=== PATIENT | female | born 1980 | race Caucasian/White ===

== ENCOUNTER 2017-08-28 09:30 | Inpatient (IN) | payer OTHER ==
[2017-08-28 12:43] VITALS: BMI 33.5
[2017-08-28] MEDS ORDERED: ELECTROLYTE-148 SOLN 500 ML IV ONE (13:45)
[2017-08-28] MEDS ORDERED: CITRIC ACID/SODIUM CITRATE 30 ML UNIT-DOSE CUP PO ONE (13:45)
[2017-08-28] MEDS ORDERED: ONDANSETRON 4 MG/2 ML VIAL IVPUSH PRN (13:55)
[2017-08-28] MEDS ORDERED: morphine SULFATE/Preservative Free 0.5 MG/ML (1cc Syringe) EP ONE (13:55)
[2017-08-28] MEDS ORDERED: IBUPROFEN 800 MG/8 ML IJ IVPB PRN (13:55)
[2017-08-28] MEDS ORDERED: ELECTROLYTE-148 SOLN 1,000 ML IV SCH ×2 (14:15→15:30)
[2017-08-28] MEDS ORDERED: diphenhydrAMINE HCL 25 MG CAPSULE (FP) PO PRN (15:21)
[2017-08-28] MEDS ORDERED: WITCH HAZEL 50% (TUCKS) 40 PAD/JAR PAD TP PRN (15:21)
[2017-08-28] MEDS ORDERED: BENZOCAINE 28 GM HEMORRHOIDAL OINTMENT PR PRN (15:21)
[2017-08-28] MEDS ORDERED: oxyCODONE HCL 5 MG TABLET PO PRN ×2 (15:21)
[2017-08-28] MEDS ORDERED: METHYLERGONOVINE MALEATE 0.2 MG/1 ML AMP IM PRN (15:21)
[2017-08-28] MEDS ORDERED: BENZOCAINE 20% 57 GM BOTTLE TP PRN (15:21)
[2017-08-28] MEDS ORDERED: OXYTOCIN 20 UNITS in 0.9% NS 20 UNIT/1,000 ML INFUS.BAG IV SCH (15:30)
[2017-08-28] MEDS ORDERED: DEXTROSE 5%-LACTATED RINGERS 1,000 ML IV SCH (15:30)
[2017-08-28] MEDS: IBUPROFEN 800 MG/8 ML IJ IVPB PRN (16:30)
[2017-08-28] MEDS ORDERED: CEFAZOLIN 1 GM PUSH 1 GM/10 ML DISP.SYRIN IVPUSH SCH (18:00)
--- NOTE | 2017-08-28 20:39 | HP ---
Past Medical History - Primary Care Physician PCP:: Terrell Stein - Admission Chief Complaint: 39 weeks, previous c/s , request of repeat c/s ,btl. ama History of Present Illness: 36 yo f , 39 weeks, with 2 previous c/s ,requesting repeat c/s and BTL, risks discussed , fully aware procedure is permanent and has small failure risk History Source: Patient Limitations to Obtaining History: No Limitations - Past Medical History ...: 3 ...Para: 2 ...Term: 2 ...: 0 ...Spon : 0 ...Induced : 0 ...Multiple Gestation: 0 ...LMP: 11/28/16 ... Weeks Gestation by Dates: 39.0 ...EDC by Dates: 09/04/17 ...EDC by Sono: 09/06/17 - Past Surgical History Hx Myomectomy: No Hx Transabdominal Cerclage: No - Smoking History Smoking history: Never smoked Have you smoked in the past 12 months: No - Alcohol/Substance Use Hx Alcohol Use: No - Social History Usual Living Arrangement: Yes: With Spouse History of Recent Travel: No Home Medications - Allergies Allergies/Adverse Reactions: Allergies Allergy/AdvReac Type Severity Reaction Status Date / Time No Known Allergies Allergy Verified 08/28/17 15:53 - Home Medications Home Medications: Ambulatory Orders Vit/Iron Fumarate/FA [ Tablet] 1 each PO DAILY 02/19/16 Ferrous Sulfate [Feosol] 325 mg PO DAILY 08/28/17 Review of Systems - Review of Systems Constitutional: reports: No Symptoms Eyes: reports: No Symptoms HENT: reports: No Symptoms Neck: reports: No Symptoms Cardiovascular: reports: No Symptoms Respiratory: reports: No Symptoms Gastrointestinal: reports: No Symptoms Genitourinary: reports: No Symptoms Breasts: reports: No Symptoms Reported Musculoskeletal: reports: No Symptoms Integumentary: reports: No Symptoms Neurological: reports: No Symptoms Endocrine: reports: No Symptoms Hematology/Lymphatic: reports: No Symptoms Psychiatric: reports: No Symptoms Physical Exam - Maternity Vital Signs: Vital Signs Temperature 97.7 F 08/28/17 18:00 Pulse Rate 81 08/28/17 18:00 Respiratory Rate 20 08/28/17 18:00 Blood Pressure 105/61 08/28/17 18:00 O2 Sat by Pulse Oximetry (%) 100 08/28/17 16:45 Constitutional: Yes: Well Nourished, No Distress, Calm Eyes: Yes: WNL, Conjunctiva Clear, EOM Intact HENT: Yes: WNL, Atraumatic, Normocephalic Neck: Yes: WNL, Supple, Trachea Midline Cardiovascular: Yes: WNL, Regular Rate and Rhythm Breast(s): Yes: WNL - Abdominal Exam/OB Number of Fetuses: Single Presentation: Vertex Contractions: No Regularity: Irritability Intensity: Unaware Monitor Mode: External Heart Rate Location: [facility] Category: I Accelerations: Uniform Decelerations: None - Vaginal Exam/OB Vaginal Bleediing: No Speculum Exam: No Dilatation (cm): closed Effacement (%): vx Amniotic Membrane Status: Intact Presentation: Vertex/Position Station: -3 - Physical Exam Edema: Yes Edema: LLE: Trace, RLE: Trace Deep Tendon Reflex Grade: Normal +2 Psychiatric: Yes: WNL Hemorrhage Risk Assessment - Risk Factors High Risk Factors: Yes: None Risk Score: 0 Risk Level: Low Risk Problem List - Problems (1) with 39 completed weeks gestation Code(s): Z3A.39 - 39 WEEKS GESTATION OF (2) Previous section complicating Code(s): O34.219 - MATERNAL CARE FOR UNSP TYPE SCAR FROM PREVIOUS DEL (3) Advanced maternal age (AMA) in Code(s): FBN2209 - (4) Admission for sterilization Code(s): Z30.2 - ENCOUNTER FOR STERILIZATION Assessment/Plan repeat c/s and btl, rba discussed
[2017-08-28] MEDS: CEFAZOLIN 1 GM PUSH 1 GM/10 ML DISP.SYRIN IVPUSH SCH (22:43)
[2017-08-29] MEDS: IBUPROFEN 800 MG/8 ML IJ IVPB PRN ×2 (00:44→10:30)
--- NOTE | 2017-08-29 05:15 | PN ---
Post Progress Note - Subjective Subjective: 36 yo Para 2 status post repeat , seen and evaluated. She c/o incision pain. Post Day: 1 Type of Delivery: Primary C/S Vital Signs: Vital Signs Temperature 98.9 F 08/29/17 02:05 Pulse Rate 84 08/29/17 02:05 Respiratory Rate 18 08/29/17 05:00 Blood Pressure 99/46 08/29/17 02:05 O2 Sat by Pulse Oximetry (%) 100 08/28/17 16:45 Breast Exam: Yes: Soft Uterus: Yes: Fundus Firm Incision: Yes: Dressing dry and intact Abdomen/GI: Yes: Abdomen soft Lochia: Yes: Rubra Lochia, amount: Small Extremities: Yes: Calves non-tender Perineum: Yes: Intact Activity: Other (She's lying in bed) Problem List - Problems (1) Status post repeat low transverse section Code(s): Z98.891 - HISTORY OF UTERINE SCAR FROM PREVIOUS SURGERY Assessment/Plan Status post repeat Low Transverse Stable Ambulation Analgesia as needed Continue routine Post op care
[2017-08-29] MEDS: CEFAZOLIN 1 GM PUSH 1 GM/10 ML DISP.SYRIN IVPUSH SCH (05:31)
[2017-08-29 08:48] LABS: BASOPHIL 0.1 % (0-2.0); EOSINOPHIL 0.3 % (0-4.5); MCH 30.4 pg (25.7-33.7); MCHC 34.2 g/dl (32.0-36.0); MEAN CELL VOLUME 89.1 fl (80-96); MEAN PLT VOLUME 8.2 fl (7.5-11.1); NEUTROPHILS 85.5 % (42.8-82.8); PLATELET COUNT 191 K/MM3 (134-434); RDW 14.3 % (11.6-15.6); WHITE BLOOD COUNT 11.2 K/mm3 (4.0-10.0)
--- NOTE | 2017-08-29 10:18 | PN ---
Progress Note (short form) - Note Progress Note: Anesthesia postop note 36 y/o F s/p spinal anesthesia for section, duramorph for postop pain management POD#1, vss, aaox3, pain well controlled, sensory motor intact distally No anesthesia complications.
[2017-08-29] MEDS: ENOXAPARIN NA (PORCINE) 40 MG/0.4 ML DISP.SYRIN SQ SCH (10:30)
--- NOTE | 2017-08-29 10:54 | OP ---
DATE OF OPERATION: 08/28/2017 PREOPERATIVE DIAGNOSES: at 39 weeks, previous section, requests a repeat section and tubal ligation. POSTOPERATIVE DIAGNOSES: at 39 weeks, previous section, requests a repeat section and tubal ligation. PROCEDURE: Repeat low segment transverse section and bilateral tubal ligation. SURGEON: Hira Stein MD FORMS ANALYST: SABA Jean ANESTHESIA: Spinal. ANESTHESIOLOGIST: Cristina Clements MD ESTIMATED BLOOD LOSS: 500 mL FINDING: A live baby, Apgars 9 and 9. DESCRIPTION OF OPERATION: Patient was taken to the operating room. Under adequate spinal anesthesia, abdomen and perineum were prepped and draped. Pfannenstiel abdominal skin incision was made over the previous incision. Abdominal wall was cut layer by layer until peritoneum was exposed and incised. Upon entering the abdominal cavity, lower uterine segment was identified and uterovesical fold of peritoneum established. Bladder was pushed down. Then, a low transverse uterine incision was made. Incision extended laterally. Amniotic sac was entered, clear fluid. Head delivered from right occiput transverse position. Nasopharynx was suctioned. Live baby was delivered. Cord around the body x1. No difficulties. Placenta was delivered manually. Uterine cavity was cleaned of all remaining tissue. Uterine incision was closed in 2 layers, first layer with 0 Biosyn continuous suture, the second layer with 0 Biosyn imbricating the first layer. Bladder flap was closed with 0 Biosyn continuous suture. Both tubes and ovaries were checked, were normal. Then, the right tube was grasped with Emir clamp. Right tube was doubly tied with 2-0 plain. Portion of tube was removed, and endosalpinx was cauterized. The same procedure repeated for the opposite tube. Visualization of both tubes showed no bleeding, and then, the pelvic cavity several times irrigated. All the lap pads, sponge, and instrument counts were correct. Peritoneum was closed with 0 Biosyn continuous suture. Muscles were brought together with interrupted sutures of 0 Biosyn. Fascia was closed with 0 Biosyn continuous suture, subcutaneous fat with interrupted suture of 0 Biosyn, and the skin was closed with precious. Patient tolerated the procedure well, left the OR in good condition. HIRA STEIN M.D. [id number]
[2017-08-29] MEDS ORDERED: BISACODYL 10 MG SUPP.RECT RC PRN (15:21)
[2017-08-29] MEDS: ACETAMINOPHEN 325 MG TABLET (FP) PO PRN ×2 (17:56→21:40)
[2017-08-29] MEDS: IBUPROFEN 600 MG TABLET (FP) PO PRN ×2 (17:57→21:40)
[2017-08-29] MEDS: SIMETHICONE 80 MG TAB.CHEW (FP) PO PRN (17:58)
[2017-08-30] MEDS: IBUPROFEN 600 MG TABLET (FP) PO PRN ×4 (07:54→20:53)
[2017-08-30] MEDS: SIMETHICONE 80 MG TAB.CHEW (FP) PO PRN ×4 (07:54→20:53)
--- NOTE | 2017-08-30 07:54 | PN ---
Post Progress Note - Subjective Subjective: c/o pain scale 7/10 Post Day: 2 Type of Delivery: Repeat C/S Vital Signs: Vital Signs Temperature 98.3 F 08/29/17 21:00 Pulse Rate 85 08/29/17 21:00 Respiratory Rate 18 08/29/17 21:00 Blood Pressure 96/45 08/29/17 21:00 O2 Sat by Pulse Oximetry (%) 100 08/28/17 16:45 Breast Exam: Yes: Soft, Other (BF). No: Engorged Uterus: Yes: Fundus Firm, Fundus below umbilicus, Non-tender Incision: Yes: Trev intact. No: Redness, Oozing Abdomen/GI: Yes: Abdomen soft, Passing flatus, Tolerating PO (diet). No: Abdominal Distention, Tender Lochia: Yes: Rubra Lochia, amount: Moderate Extremities: Yes: Calves non-tender Perineum: Yes: Intact Activity: Ambulating - Labs Labs: CBC WBC 11.2 K/mm3 (4.0-10.0) H 08/29/17 08:00 RBC 3.41 M/mm3 (3.60-5.2) L 08/29/17 08:00 Hgb 10.4 GM/dL (10.7-15.3) L D 08/29/17 08:00 Hct 30.4 % (32.4-45.2) L 08/29/17 08:00 MCV 89.1 fl (80-96) 08/29/17 08:00 MCH 30.4 pg (25.7-33.7) 08/29/17 08:00 MCHC 34.2 g/dl (32.0-36.0) 08/29/17 08:00 RDW 14.3 % (11.6-15.6) 08/29/17 08:00 Plt Count 191 K/MM3 (134-434) D 08/29/17 08:00 MPV 8.2 fl (7.5-11.1) 08/29/17 08:00 Neutrophils % 85.5 % (42.8-82.8) H 08/29/17 08:00 Lymphocytes % 9.5 % (8-40) D 08/29/17 08:00 Monocytes % 4.6 % (3.8-10.2) 08/29/17 08:00 Eosinophils % 0.3 % (0-4.5) 08/29/17 08:00 Basophils % 0.1 % (0-2.0) 08/29/17 08:00 Assessment/Plan stable plan ct po care
[2017-08-30] MEDS: ACETAMINOPHEN 325 MG TABLET (FP) PO PRN ×4 (07:55→20:53)
[2017-08-30] MEDS: ENOXAPARIN NA (PORCINE) 40 MG/0.4 ML DISP.SYRIN SQ SCH (09:46)
[2017-08-30] MEDS ORDERED: DIPHTH,PERTUSS(ACELL),TET 0.5 ML DISP.SYRIN IM ONE (10:00)
[2017-08-30] MEDS ORDERED: SENNOSIDES/DOCUSATE COMBO (SENNA PLUS) TABLET (UD) PO PRN (22:00)
[2017-08-31] MEDS: SIMETHICONE 80 MG TAB.CHEW (FP) PO PRN (04:29)
[2017-08-31] MEDS: ACETAMINOPHEN 325 MG TABLET (FP) PO PRN ×2 (04:29→07:51)
[2017-08-31] MEDS: IBUPROFEN 600 MG TABLET (FP) PO PRN ×2 (04:30→07:50)
[2017-08-31 08:42] VITALS: BP 112/57; PULSE 78; TEMP 97.9
[2017-08-31 08:45] LABS: BASOPHIL 0.2 % (0-2.0); EOSINOPHIL 1.3 % (0-4.5); MCH 30.6 pg (25.7-33.7); MCHC 33.9 g/dl (32.0-36.0); MEAN CELL VOLUME 90.4 fl (80-96); MEAN PLT VOLUME 7.8 fl (7.5-11.1); PLATELET COUNT 225 K/MM3 (134-434); RDW 14.1 % (11.6-15.6); WHITE BLOOD COUNT 9.9 K/mm3 (4.0-10.0)
[2017-08-31] MEDS: ENOXAPARIN NA (PORCINE) 40 MG/0.4 ML DISP.SYRIN SQ SCH (09:17)
--- NOTE | 2017-08-31 09:41 | DS ---
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 Vital Signs: Vital Signs Temperature 97.9 F 08/31/17 08:39 Pulse Rate 78 08/31/17 08:39 Respiratory Rate 18 08/31/17 08:39 Blood Pressure 112/57 08/31/17 08:39 O2 Sat by Pulse Oximetry (%) 100 08/28/17 16:45 Constitutional: Yes: Well Nourished Eyes: Yes: Conjunctiva Clear HENT: Yes: Atraumatic Neck: Yes: Supple Cardiovascular: Yes: Regular Rate and Rhythm Respiratory: Yes: Regular Gastrointestinal: Yes: Normal Bowel Sounds ...Rectal Exam: Yes: WNL Pelvis: Yes: WNL External Genitalia: Yes: Normal Vaginal Exam: Yes: Normal Cervix: Yes: Normal Uterus: Yes: Firm Breast(s): Yes: WNL Wound/Incision: Yes: [place] Intact Neurological: Yes: Alert, Oriented ...Motor Strength: WNL Psychiatric: Yes: Alert, Oriented Labs: CBC, BMP 08/31/17 07:35 Delivery - Delivery Type of Anesthesia: Spinal Episiotomy/Laceration: None EBL (cc): 500 Delivery, Single - Stages of Labor Date of Delivery: 08/28/17 Time of Delivery: 14:38 Time Placenta Delivered: 14:39 - Condition of Infant Process Tank Tender/Primary Education Professor Present: Yes Name: Jessica Posadas Gender: Male Weight: 8 lb 7 oz Position: Right, OT Total Hours ROM (Hrs/Mins): 0/2 - 1 Minute Total Score: 9 5 Minutes Total Score: 9 - Feeding Plan Initial Plan: Elected not to breastfeed exclusively throughout hospitalization Discharge Summary Reason For Visit: C SECTION Current Active Problems Admission for sterilization (Acute) Advanced maternal age (AMA) in (Acute) with 39 completed weeks gestation (Acute) Previous section complicating (Acute) Status post repeat low transverse section (Acute) Procedures: Principal: Rpeat Low Transverse Hospital Course: Routine post op care Condition: Good - Instructions Diet, Activity, Other Instructions: No driving, no lifting x 4 weeks Referrals: Terrell Stein MD [Staff Physician] - Disposition: HOME - Home Medications Comprehensive Discharge Medication List: Ambulatory Orders Vit/Iron Fumarate/FA [ Tablet] 1 each PO DAILY 02/19/16 Ferrous Sulfate [Feosol] 325 mg PO DAILY 08/28/17
--- NOTE | 2017-09-04 15:15 | PATH ---
Surgical Pathology Report Patient Name: FLAQUITA QUEEN [facility]. Rec. 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 Specimen(s) Received A: PLACENTA B: LEFT FALLOPIAN TUBE C: RIGHT FALLOPIAN TUBE Clinical History , 39 weeks gestation for repeat Positive GBS, Rh- Final Diagnosis A. PLACENTA, DELIVERY: FOCALLY DISRUPTED THIRD TRIMESTER PLACENTA WITH THREE VESSEL UMBILICAL CORD AND UNREMARKABLE PLACENTAL MEMBRANES. B. LEFT FALLOPIAN TUBE, PARTIAL EXCISION: FULL LUMINAL PORTION OF UNREMARKABLE FALLOPIAN TUBE. C. RIGHT FALLOPIAN TUBE, PARTIAL EXCISION: FULL LUMINAL PORTION OF UNREMARKABLE FALLOPIAN TUBE. Electronically Signed Juan Wilkins M.D. Gross Description A. The specimen is received fresh labeled placenta and is a 504 gram, 17.5 x 15.5 x 2.7 cm. placenta with attached membranes and umbilical cord. The attached membranes are allen, translucent with focal opacities and insert marginally. The umbilical cord measures 34 cm. in length and averages 1.1 cm. in diameter. The cord inserts centrally. No true knots or strictures are identified. Cut surface of the umbilical cord reveals 3 vessels. The surface is fam blue with moderate fibrin deposition and appropriate caliber vessels. The maternal surface is red-brown with focal defects. Sectioning reveals red-brown, spongy parenchyma. No lesions are identified. Staff Registered Nurse sections are submitted in three cassettes as follows: 1- membrane rolls and umbilical cord; 2-3- full thickness sections of placenta. B. Received in formalin labeled "portion of left fallopian tube," is a 0.9 cm in length portion of fallopian tube. No fimbria are present. The outer surface is allen-yang and smooth. Sectioning reveals an unremarkable lumen. Staff Registered Nurse sections are submitted in one cassette. C. Received in formalin labeled "portion of right fallopian tube," is a 0.8 cm in length portion of fallopian tube. No fimbria are present. The outer surface is allen-yang and smooth. Sectioning reveals an unremarkable lumen. Staff Registered Nurse sections are submitted in one cassette. DL/09/01/2017 saudi09/01/2017
== END 2017-08-31 11:20 | disposition home or self-care (01) | DRG 540 ==
LOC: JLDR 11:45 → J3W 17:00
PROVIDERS: ADMIT Obstetrics & Gynecology; ATTEND Obstetrics & Gynecology
PROC: 10D00Z1 Extraction of Products of Conception, Low, Open Approach (ICD-10-PCS; principal; 2017-08-28)
PROC: 0U570ZZ Destruction of Bilateral Fallopian Tubes, Open Approach (ICD-10-PCS; 2017-08-28)
DX: O34.211 Maternal care for low transverse scar from previous cesarean delivery (principal); Z3A.39 39 weeks gestation of pregnancy; Z37.0 Single live birth; Z30.2 Encounter for sterilization
CPT/HCPCS: 36415; 85025; 85461; 86999; 88302-TC; 88307-TC; 90715